=== PATIENT | female | born 1985 | race Caucasian/White ===

== ENCOUNTER 2016-06-17 20:55 | Emergency (ER) | payer MEDICAID ==
[2016-06-17 21:04] VITALS: BP 125/91
--- NOTE | 2016-06-17 21:47 | Emergency Department Report ---
Chief Complaint: Extremity Injury, Upper Stated Complaint: BODY PAIN Time Seen by Provider: 06/17/16 21:42 - HPI History of Present Illness: Patient states she noticed some intemrittent left sided chest pain that radiates into left arm, worse with deep inspiration, since this morning; denies trauma or injuries, cough and fevers; said her mother in May 2013 and this month is bad for her - ROS Review of Systems: Negative except for those stated in HPI - Exam Vital Signs: Vital Signs 06/17/16 21:00 Temperature 98.6 F Pulse Rate 84 Blood Pressure 125/91 O2 Sat by Pulse 100 Oximetry Physical Exam: Heart - RRR Lungs - CTAB MSE screening note: Focused history and physical exam performed. Due to findings the following was ordered: EKG, CXR, labs, patient to be seen in Main ED ED Disposition for MSE Condition: Stable
[2016-06-18 00:16] LABS: Basophils % (Auto) 0.6 % (0.0-1.8); Eosinophils % (Auto) 1.8 % (0.0-4.3); Hematocrit 42.8 % (30.3-42.9); Hemoglobin 13.9 gm/dl (10.1-14.3); Mean Corpuscular HGB Conc 32 % (30-34); Mean Corpuscular Hemoglobin 30 pg (28-32); Mean Corpuscular Volume 94 fl (79-97); Platelet Count 166 K/mm3 (140-440); Red Blood Count 4.57 M/mm3 (3.65-5.03); White Blood Count 12.2 K/mm3 (4.5-11.0)
[2016-06-18 00:35] LABS: BUN/Creatinine Ratio 12.85; Blood Urea Nitrogen 9 mg/dL (7-17); Calcium 9.3 mg/dL (8.4-10.2); Carbon Dioxide 26 mmol/L (22-30); Chloride 98.7 mmol/L (98-107); Glucose 66 mg/dL (65-100); Potassium 3.9 mmol/L (3.6-5.0); Sodium 140 mmol/L (137-145)
[2016-06-18 00:36] LABS: Anion Gap 19 mmol/L
--- NOTE | 2016-06-18 07:17 | XRay Report ---
ROUTINE CHEST, TWO VIEWS: HISTORY: chest pain. The trachea, heart, mediastinal contour, lung [place] and bony thorax are unremarkable. IMPRESSION: Unremarkable chest x-ray.
--- NOTE | 2016-06-24 16:56 | ED Elopement Review ---
ED Pt Elopement review - Results review Lab results: Laboratory Tests 06/18/16 06/18/16 06/18/16 00:00 00:00 Unknown WBC 12.2 H RBC 4.57 Hgb 13.9 Hct 42.8 MCV 94 MCH 30 MCHC 32 RDW 14.0 Plt Count 166 Lymph % (Auto) 24.9 [place] % (Auto) 9.9 H Eos % (Auto) 1.8 Baso % (Auto) 0.6 Lymph # 3.0 [place] # 1.2 H Eos # 0.2 Baso # 0.1 Seg Neutrophils % 62.8 Seg Neutrophils # 7.7 Sodium 140 Potassium 3.9 Chloride 98.7 Carbon Dioxide 26 Anion Gap 19 BUN 9 Creatinine 0.7 Estimated GFR > 60 BUN/Creatinine Ratio 12.85 Glucose 66 Calcium 9.3 Troponin T < 0.010 Urine HCG, Qual Negative - Call Back decision Pt Call Back Decision: No action required
== END 2016-06-18 05:22 | disposition left against medical advice (07) ==
LOC: ED 20:55
DX: R07.89 Other chest pain (principal); M79.602 Pain in left arm; Z53.21 Procedure and treatment not carried out due to patient leaving prior to being seen by health care provider
CPT/HCPCS: 36415; 71020; 80048; 81025; 84484; 85025; 93005; 93010